=== PATIENT | female | born 2005 | race African-American/Black ===

== ENCOUNTER 2025-06-07 18:17 | Emergency (ER) | payer SELFPAY ==
[2025-06-07 18:22] VITALS: BP 142/92; PULSE 97; RESP 16; TEMP 36.4; O2SAT 99; BMI 24.1
--- OUTSIDE RECORDS SUMMARY | 2025-06-07 18:26 | XMS_ITS | Patient Health Record ---
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
--- NOTE | 2025-06-07 20:29 | ED_ITS ---
HPI - SOB/Dyspnea General: Chief Complaint: Shortness of Breath/Dyspnea Stated Complaint: Chest Tightness SOB Time Seen by Provider: 06/07/25 20:11 History of Present Illness: HPI Narrative: [place] 19[place]year[place], presents to the emergency room when she started having shortness of breath and wheezing at 445 today. Patient stated she was taking her nap at 4, then by 445, started having shortness of breath. This was associated with wheezing, having a difficulty taking a deep breath. This is typical of previous asthma attacks. Patient is traveling, and does not have her inhaler. No fevers. This occurred just prior to arrival. Oxygen saturation 99% on room air in triage. Associated symptoms: Deny abdominal pain, chest pain, extremity pain, fever(s), nausea, palpitations or vomiting Related Data Allergies Allergy/AdvReac Type Severity Reaction Status Date / Time No Known Allergies Allergy Verified 06/07/25 18:25 Review of Systems General: Reports: 10 or more systems reviewed and unremarkable except in HPI and below Const: Denies: fever(s) or chills Eyes: Denies: change in vision or blurry vision ENMT: Denies: throat pain, uvular edema or ear or mastoid pain Card: Denies: chest pain or palpitations Resp: Reports: dyspnea and non-productive cough GI: Denies: abdominal pain, nausea or vomiting : Denies: flank pain or difficulty voiding Musc: Denies: neck pain, back pain or extremity pain Skin/Breast: Denies: rash or pruritus Neuro: Denies: headache(s) or numbness in extremities Physical Exam Const: COMMON NORMALS: no acute distress, average body habitus, patient oriented x3, no limitations, healthy appearing, alert and well nourished HENMT: COMMON NORMALS: normocephalic, atraumatic and hearing grossly normal bilaterally HEAD & SCALP: normocephalic and atraumatic THROAT: no uvular edema Neck/C-Spine: COMMON NORMALS: no JVD Resp: COMMON NORMALS: normal respiratory effort, No retractions and No use of accessory muscles AUSCULTATION: wheezes expiratory wheezes (Upper lobes) Cardio: COMMON NORMALS: no JVD, regular rate and regular rhythm RATE: regular rate RHYTHM: regular rhythm GI: COMMON NORMALS: Normal to inspection, nondistended, normoactive bowel sounds present, Soft to palpation, non-tender and No hepatosplenomegaly present PALPATION: Yes Soft to palpation and Yes No hepatosplenomegaly present : COMMON NORMALS: Yes no CVA tenderness and Yes normal external appearance BLADDER/KIDNEY EXAM: Yes no CVA tenderness Back/Pelvis: COMMON NORMALS: no CVA tenderness and thoracic and lumbar spine normal to inspection Extremity: COMMON NORMALS: normal to inspection, full ROM and capillary refill normal GENERAL: Yes normal exam except as noted Neuro: COMMON NORMALS: patient oriented x3 and CN's II-XII intact bilaterally SENSORIUM/ORIENTATION: Yes alert Course Vital Signs: Vital signs: Vital Signs Temperature 97.5 F L 06/07/25 18:22 Pulse Rate 80 06/07/25 20:56 Respiratory Rate 16 06/07/25 20:56 Blood Pressure 142/92 06/07/25 18:22 Pulse Oximetry 97 06/07/25 20:56 Oxygen Delivery Me thod Room Air 06/07/25 20:56 MDM - SOB/Dyspnea Medical Decision Making Patient is 19-year-old female with history of reactive airway disease that presents to the emergency room with wheezing, and shortness of breath. This was after she had her nap today. She initially woke up, felt fine, and then had some wheezing. No viral exposure. Oxygen saturations 99% on room air. She has minimal end expiratory wheezes in upper lobes, otherwise she has good aeration. Will instruct on albuterol inhaler, give dexamethasone x 1 here. Medical Records I reviewed the patient's medical records. XR interpretation done by ED provider, pending radiology final review Discharge Plan Discharge Patient Disposition: Home Clinical Impression: Asthma with exacerbation Qualifiers: Asthma severity: mild Asthma persistence: intermittent Qualified Code(s): J45.21 - Mild intermittent asthma with (acute) exacerbation Condition: Stable Discharge Orders: Discharge ED (Routine); Ordered 06/07/25 Ordered By: Kiya Trevino Discharge Diet: Usual diet Discharge Activity: Resume usual activity Patient Instructions: Asthma (ED), Patient Portal & Cal Instructions Activity Restrictions/Additional Instructions: - Take your inhaler as instructed with the AeroChamber - You received albuterol inhaler here with the AeroChamber, and dexamethasone shot. - Return to ED if you have worsening shortness of breath, cough, unable to catch her breath, or fever greater than 100.4 ?F Thank you for choosing [facility] for your healthcare needs today. You have been screened and evaluated and felt safe for discharge. Health conditions do change or evolve sometimes and as such it is important that you follow up with your Primary Doctor to be re checked, 3-5 days is a general good time frame for follow up. You are always welcome to return to the ED for re assessment if your symptoms are worsening or you have new concerns Print Language: Setswana Coding Level of Care Code ED Hospital Medicine Director for Louis Santana
[2025-06-07 20:56] VITALS: PULSE 80; RESP 16; O2SAT 97
[2025-06-07] MEDS: albuterol 8 gm MDI 2 PUFF INHALATION (20:56)
== END 2025-06-07 20:54 | disposition home or self-care (01) ==
PROVIDERS: Emergency Provider Physician Assistant
DX: J45.21 Mild intermittent asthma with (acute) exacerbation (principal)
CPT/HCPCS: 94640; 96372; 99284; J1100; J3535